=== PATIENT | female | born 1985 | race Caucasian/White ===

== ENCOUNTER 2021-11-27 22:52 | Emergency (ER) | payer OTHER, MEDICARE, MEDICAID, SELFPAY ==
--- NOTE | ~2021-11-27 | XR_ITS ---
EXAMINATION: XR tibia fibula LT 2V DATE: 11/27/2021 23:23 INDICATION: Left lower leg pain. Fall. TECHNIQUE: 2 views of left tibia and fibula were obtained. COMPARISON: None. FINDINGS: Bone alignment is normal. No fracture. There is mild left knee osteoarthritis. IMPRESSION: 1. Mild left knee osteoarthritis. Reviewed, dictated and finalized at location A.
--- NOTE | ~2021-11-27 | XR_ITS ---
EXAMINATION: XR foot LT min 3V DATE: 11/27/2021 23:22 INDICATION: Left foot pain. Fall. TECHNIQUE: 4 views of left foot were obtained. COMPARISON: None. FINDINGS: Bone alignment is normal. No fracture. There is mild osteoarthritis of first metatarsophala ngeal joint, talonavicular joint, and some of the interphalangeal joints. There are enthesophytes at the posterior and plantar aspects of calcaneal tuberosity. IMPRESSION: 1. Mild polyarticular osteoarthritis. Reviewed, dictated and finalized at location A.
--- NOTE | ~2021-11-27 | XR_ITS ---
EXAMINATION: XR ankle LT min 3V DATE: 11/27/2021 23:22 INDICATION: Left ankle pain. Fall. TECHNIQUE: 4 views of left ankle were obtained. COMPARISON: None. FINDINGS: Bone alignment is normal. No fracture. Joint spaces are well maintained. There are enthesop hytes at posterior and plantar aspects of calcaneal tuberosity. Ankle soft tissue swelling is noted. IMPRESSION: 1. No fracture. Reviewed, dictated and finalized at location A. IMPRESSION: 1. No fracture.
[2021-11-27 22:55] VITALS: BP 117/63; PULSE 58; RESP 16; TEMP 36.6; O2SAT 100
--- NOTE | 2021-11-27 23:10 | ED.LOWEXIN ---
HPI - Extremity Injury (Lower) General Chief Complaint: Extremity Injury, Lower Stated Complaint: I think I broke my ankle Time Seen by Provider: 11/27/21 23:02 Source: patient Mode of arrival: ambulatory Limitations: no limitations History of Present Illness HPI Narrative: 36-year-old female presents secondary pain to the left lower extremity. She states she was working on Tuesday when she was mopping some stairs. She turned and she fell landing on her left foot and ankle area. She states she was able get up and walk on it afterwards but it is painful to do so. She is continue to have pain and swelling to her left lateral foot as well as left lateral ankle and is also having some pain to the proximal left fibula area. Patient states she has a history of scoliosis as well as Erler's Danlos syndrome. Denies any other injuries. Related Data Allergies Allergy/AdvReac Type Severity Reaction Status Date / Time magnesium sulfate Allergy Swelling Verified 11/27/21 22:58 of Lip/Tongue/Throat Review of Systems Review of Systems: CONSTITUTIONAL: Denies fever, chills, or sweats. EYES: Denies visual changes, redness, or discharge. ENT: Denies rhinorrhea, congestion, sore throat, or otalgia. CARDIOVASCULAR: Denies chest pain, palpitations, or edema. RESPIRATORY: Denies cough or dyspnea. GASTROINTESTINAL: Denies abdominal pain, nausea, vomiting, or diarrhea. GENITOURINARY: Denies dysuria or hematuria. SKIN: Denies rash or itching. MUSCULOSKELETAL: Pain to the left foot, ankle, and leg. NEUROLOGIC: Denies headache, numbness, or weakness. PSYCHIATRIC: Denies anxiety or depression. Exam Narrative: APPEARANCE: Well appearing, no pain or distress, well-nourished. Head normocephalic and atraumatic. THROAT: Pharynx clear, no exudate. NECK: Supple. No adenopathy, no masses. RESPIRATORY: Airway patent, respirations nonlabored. Clear to auscultation bilaterally, no rales, rhonchi, wheezing. CARDIOVASCULAR: Regular rate and rhythm without murmurs, rubs, or gallops. ABDOMINAL: Soft, nontender, nondistended, no hepatosplenomegaly Musculoskeletal: Moves all extremities. Tenderness to palpation to the base of the left fifth metatarsal, lateral ankle, as well as proximal left fibular area. NEURO: Alert. Cranial nerves II through XII intact. Normal gait. Good coordination. Nonfocal examination. SKIN:: Warm, dry. Normal Color PSYCHIATRIC: Normal affect/mood, normal interaction Course Vital Signs Vital signs: Vital Signs Temperature 97.9 F 11/27/21 22:55 Pulse Rate 58 L 11/27/21 22:55 Respiratory Rate 16 11/27/21 22:55 Blood Pressure 117/63 11/27/21 22:55 Pulse Oximetry 100 11/27/21 22:55 Temperature 97.9 F 11/27/21 22:55 Pulse Rate 58 L 11/27/21 22:55 Respiratory Rate 16 11/27/21 22:55 Blood Pressure 117/63 11/27/21 22:55 Pulse Oximetry 100 11/27/21 22:55 MDM - Extremity Injury (Lower) MDM Narrative Medical decision making narrative: X-rays were obtained of the left foot, left ankle, left tib-fib. X-rays are read by me shows no fractures or dislocations. Imaging Data My impression: No fractures or dislocations noted Discharge Plan Discharge Clinical Impression: Ankle sprain and strain Contusion Qualifiers: Encounter type: initial encounter Contusion area: lower leg Laterality: left Qualified Code(s): S80.12XA - Contusion of left lower leg, initial encounter Patient Disposition: Home, Self-Care Condition: Stable Instructions: Ankle Sprain (ED) Additional Instructions: Shahab wrap as needed. Return if worse. Bear weight is able to tolerate. Prescriptions: New naproxen [Naprosyn] 500 mg tablet 500 mg PO BID PRN (Reason: pain) Qty: 20 RF: 0 Follow-up/Referrals: Harms,Daniel Hugo M.D. [Primary Care Provider] -
[2021-11-27] MEDS: NAPROXEN 500 MG TABLET PO (23:25)
[2021-11-28] MEDS: HYDROcodone/acetaminophen (*CRX) 5-325 MG TABLET 1 TAB PO (01:22)
[2021-11-28 01:48] VITALS: BP 131/87; PULSE 60; RESP 18; O2SAT 99
== END 2021-11-28 01:50 | disposition home or self-care (01) ==
PROVIDERS: Emergency Provider Emergency Medicine; PCP Family Medicine
DX: S93.402A Sprain of unspecified ligament of left ankle, initial encounter (principal); S96.912A Strain of unspecified muscle and tendon at ankle and foot level, left foot, initial encounter; S80.12XA Contusion of left lower leg, initial encounter; Q79.60 Ehlers-Danlos syndrome, unspecified; W10.9XXA Fall (on) (from) unspecified stairs and steps, initial encounter
CPT/HCPCS: 73590; 73610; 73630; 99284; A9270